=== PATIENT | female | born 2000 | race Caucasian/White ===

== ENCOUNTER → 2019-10-31 16:17 | Outpatient (CLI) | payer OTHER, MEDICAID, SELFPAY ==
--- NOTE | 2019-10-31 16:21 | DI.US.S_ITS ---
PROCEDURE: US OB <= 14 WEEKS FETUS INDICATIONS: F/U TO EARLY US [facility] AT 6w1d, VIABILITY AND DATING OUTSIDE/PRIOR DATING DATA: Last menstrual period (LMP): 08/17/19. LMP-based estimated date of delivery (HARJEET): 05/23/20. First dating scan (date and location): 10/13/19. Estimated date of delivery (HARJEET) from first dating scan: 06/06/20. TECHNIQUE: Real-time scanning was performed of the fetus and maternal pelvic organs, with image documentation. COMPARISON: None. FINDINGS: Embryo: A single live intrauterine is seen. The measured heart rate is 175 beats per minute. The crown-rump length measures 2.5 cm, corresponding to an estimated gestational age of 9 weeks 2 days. It is too early for detailed anatomic assessment. By visual inspection, the amount of amniotic fluid is within normal limits. No significant findings of subchorionic/perigestational hemorrhage are seen. Measurement variability in dating: +/- 4 weeks by LMP, +/- 7 days by mean sac diameter (use before 6 weeks gestation if crown-rump length not able to be measured), +/- 5 days by crown-rump length (up to 8 weeks 6 days gestation), +/- 7 days by crown-rump length (up to 13 weeks 6 days gestation). Maternal organs: Ovaries are unremarkable. Limited images through the kidneys demonstrate no hydronephrosis. IMPRESSION: A single live intrauterine is seen. There is an approximately 2 week discrepancy between the estimated gestational age based on these images and estimated gestational age based on the given date of the last menstrual period. Please correlate with precise clinical data. Dictated by: Dov Trivedi M.D. on 10/31/2019 at 16:08 Approved by: Dov Trivedi M.D. on 10/31/2019 at 16:10
[2019-10-31 17:35] LABS: Add Manual Diff / Slide Review NO; Basophils Absolute Auto 100 /uL (0-100); Basophils Percent Auto 0.4 % (0-2); Eosinophils Absolute Auto 100 /uL (0-450); Eosinophils Percent Auto 0.8 % (2-4); Hematocrit 41.9 % (36-46); Hemoglobin 14.2 g/dL (12.0-16.0); Lymphocytes Absolute Auto 3000 /uL (1100-4500); Lymphocytes Percent Auto 23.8 % (25-40); Mean Corpuscular HGB Conc 33.9 % (30-36); Mean Corpuscular Hemoglobin 29.9 PG (26-34); Mean Corpuscular Volume 88.2 fL (80-100); Monocytes Absolute Auto 800 /uL (0-900); Monocytes Percent Auto 6.5 % (3-14); Neutrophils Absolute Auto 8600 /uL (1500-7000); Neutrophils Percent Auto 68.5 % (50-75); Platelet Count 324 X10^3/uL (150-400); Red Blood Cell Count 4.75 X10^6/uL (4.0-5.2); Red Cell Distribution Width 14.1 % (11.6-14.8); White Blood Cell Count 12.6 X10^3/uL (4.5-11.0)
[2019-10-31 17:39] LABS: Appearance Urine UA CLEAR; Bilirubin Urine UA NEGATIVE (NEGATIVE); Color Urine UA YELLOW; Glucose Urine UA NEGATIVE (Negative); Ketones Urine UA TRACE (NEGATIVE); Leukocyte Esterase Urine UA 2+ (NEGATIVE); Nitrite Urine UA NEGATIVE (Negative); Occult Blood Urine UA TRACE-LYSED (Negative); Protein Urine UA NEGATIVE (Negative); Specific Gravity Urine UA 1.015 (1.000-1.035); Urobilinogen Urine UA 0.2 E.U./dL (0.2)
[2019-10-31 17:53] LABS: pH Urine UA 6.5 (4.5-8.0)
[2019-10-31 17:54] LABS: Bacteria Urine Moderate (10-30); RBC Urine 0-1/HPF (0-5/HPF); Squamous Epithelial Cell Urine 1-5 /HPF (0-5/HPF); WBC Urine 5-10/HPF (0-5/HPF)
[2019-11-01 16:07] LABS: RPR Screen Non Reactive (Non Reactive); Varicella IgG Antibody <135 index (Immune >165)
[2019-11-03 21:45] LABS: Hepatitis B Surface Antigen NEGATIVE s/c (NEGATIVE); Rubella Antibody IgG 84.9 IU/mL (>15)
[2019-11-03 21:50] LABS: HIV 1 & 2 Ab/Ag 4th Gen Combo NEGATIVE (NEGATIVE); Hep C Virus Ab w/Reflex Quant NEGATIVE s/c (NEGATIVE)
== END ==
PROVIDERS: Referring Provider Family Medicine; Visit Provider Family Medicine
DX: Z34.81 Encounter for supervision of other normal pregnancy, first trimester (principal); Z3A.09 9 weeks gestation of pregnancy
CPT/HCPCS: 36415; 76801; 80055; 81003; 81015; 86787; 86803; 86850; 86900; 86901; 87086; 87389

== ENCOUNTER → 2019-11-04 13:48 | Outpatient (CLI) | payer OTHER, MEDICAID, SELFPAY ==
[2019-11-04 16:39] LABS: Urine N gonorrhoeae NOT DETECTED
[2019-11-04 17:04] LABS: Urine Chlamydia NOT DETECTED
== END ==
PROVIDERS: Visit Provider Family Medicine
DX: Z11.3 Encounter for screening for infections with a predominantly sexual mode of transmission (principal); Z11.8 Encounter for screening for other infectious and parasitic diseases; Z34.90 Encounter for supervision of normal pregnancy, unspecified, unspecified trimester
CPT/HCPCS: 87491; 87591

== ENCOUNTER → 2020-01-05 11:18 | Outpatient (CLI) | payer OTHER, MEDICAID, SELFPAY ==
[2020-01-07 20:36] LABS: AFP, Serum 37.2 ng/mL (.); Calc Gestational Age EDD (.); Estriol, Free 1.79 ng/mL (.); Inhibin A, Dimeric 299.38 pg/mL (.); Inhibin A, MoM 2.43 (.); Maternal Ethnicity Caucasian (.); Maternal Weight 261 lbs (.); Number of Fetuses No (.); OSBR Risk 1 IN 6499 (.); Results Report (.); Test Results *Screen Negative* (.); hCG, MoM 1.62 (.); hCG, Serum 33077 mIU/mL (.)
== END ==
PROVIDERS: PCP Family Medicine; Referring Provider Family Medicine; Visit Provider Family Medicine
DX: Z34.90 Encounter for supervision of normal pregnancy, unspecified, unspecified trimester (principal); Z3A.18 18 weeks gestation of pregnancy
CPT/HCPCS: 36415; 82105; 82677; 84702; 86336

== ENCOUNTER → 2020-01-19 10:46 | Outpatient (CLI) | payer OTHER, MEDICAID, SELFPAY ==
--- NOTE | 2020-01-19 10:48 | DI.US.S_ITS ---
PROCEDURE: US OB >= 14 WEEKS FETUS INDICATIONS: ANATOMY SCREENING OUTSIDE/PRIOR DATING DATA: Last menstrual period (LMP): 08/17/19. LMP-based estimated date of delivery (HARJEET): 05/23/20 . First dating scan (date and location): 10/13/19 . Estimated date of delivery (HARJEET) from first dating scan: 06/06/20 . TECHNIQUE: Real-time scanning was performed of the fetus, with image documentation and biometric measurements. Endovaginal scanning: Not needed. COMPARISON: None. FINDINGS: General: A single living intrauterine gestation is present. Presentation: Vertex. Placenta: Placental position is posterior , without previa. 10.9 Amniotic fluid index: Normal cm, normal range is 5-24 cm. heart rate: 144 beats per minute. Maternal cervical canal: 3.5 cm long. biometrics: Biparietal diameter: 4.9 cm, 20 weeks 6 days Head circumference: 18.5 cm, 20 weeks 6 days Abdominal circumference: 15.7 cm, 20 weeks 6 days Femur length: 3.3 cm, 20 weeks 1 day Estimated gestational age from initial scan: 20 weeks 1 day Composite gestational age from present scan: 20 weeks 5 days Estimated weight and percentile: 363 g, 70th percentile Measurement variability for biometric dating: +/- 7 days from 14 weeks to 15 weeks 6 days gestation, +/- 10 days from 16 weeks to 21 weeks 6 days gestation, +/- 2 weeks from 22 weeks to 27 weeks 6 days gestation, +/- 3 weeks for 28 weeks gestation or later. weight reference: 4500 g or EFW >90/95% is considered macrosomia or large for gestational age. EFW <10% is small for gestational age. EFW 5% or less is considered intra-uterine growth restriction. Anatomic survey: Neuro: Ventricles are non-dilated at less than 10 mm. Cisterna magna is normal at 3-11 mm. Cerebellum is normal in size and morphology. Neck region is relatively poorly visualized. Nuchal skin fold: Normal at less than 6 mm between 14-21 weeks gestational age. Face: Nose and lips, facial profile are not well seen. Spine: No evidence for spina bifida. Heart: 4-chambered heart is present, with relatively poorly visualized ventricular outflow tracts. Diaphragm: Diaphragm is intact. Stomach: Left-sided stomach is present. Kidneys: No hydronephrosis. Normal is less than 5 mm in 2nd trimester, less than 7 mm in 3rd trimester. Cord: 3-vessel cord has orthotopic insertion. Bladder: Normal in size. Extremities: All 4 extremities identified. IMPRESSION: Appropriate interval growth, no anomaly is seen however quality of visualization of the facial area, neck region and ventricular outflow tracts is limited and for this reason follow-up completion of anatomic survey is recommended in 1-2 weeks. Dictated by: Patrick Zhang M.D. on 01/19/2020 at 13:47 Approved by: Patrick Zhang M.D. on 01/19/2020 at 13:51
== END ==
PROVIDERS: PCP Family Medicine; Referring Provider Family Medicine; Visit Provider Family Medicine
DX: Z36.89 Encounter for other specified antenatal screening (principal); Z3A.20 20 weeks gestation of pregnancy
CPT/HCPCS: 76811

== ENCOUNTER → 2020-03-02 10:50 | Outpatient (CLI) | payer OTHER, MEDICAID, SELFPAY ==
--- NOTE | 2020-03-02 12:36 | DI.US.S_ITS ---
PROCEDURE: US OB FOLLOW UP INDICATIONS: FOLLOW UP. COMPLETION OF ANATOMIC SURVEY. OUTSIDE/PRIOR DATING DATA: Last menstrual period (LMP): 08/17/2019. LMP-based estimated date of delivery (HARJEET): 05/23/2020 . First dating scan (date and location): 10/13/2019 . Estimated date of delivery (HARJEET) from first dating scan: 06/06/2020 . TECHNIQUE: Real-time scanning was performed of the fetus, with image documentation and biometric measurements. Endovaginal scanning: No COMPARISON: [facility], OB >= 14 WEEKS FETUS, 01/19/2020, 11:03. FINDINGS: General: A single living intrauterine gestation is present. Presentation: Vertex Placenta: Placental position is posterior , without previa. Amniotic fluid index: 13.7 cm, normal range is 5-24 cm. heart rate: 153 beats per minute. Maternal cervical canal: Not well seen. Composite gestational age from present scan: 26 weeks 2 days face again not well seen. IMPRESSION: Single living IUP redemonstrated and today's exam again failing to visualize the face secondary to position. Dictated by: Jesús Justin [facility] Interpreted: Ashley Vargas MD on 03/02/2020 at 16:57 Approved by: Ashley Vargas M.D. on 03/02/2020 at 18:09
[2020-03-02 13:32] LABS: Hematocrit 36.5 % (36-46); Hemoglobin 12.3 g/dL (12.0-16.0)
[2020-03-02 15:43] LABS: GTT (PREG) 1 Hour PP 50gm Dose 101 mg/dL (76-139)
== END ==
PROVIDERS: PCP Family Medicine; Referring Provider Family Medicine; Visit Provider Family Medicine
DX: Z36.2 Encounter for other antenatal screening follow-up (principal); Z3A.26 26 weeks gestation of pregnancy
CPT/HCPCS: 36415; 76816; 82950; 85014; 85018

== ENCOUNTER → 2020-05-11 11:05 | Outpatient (CLI) | payer OTHER, MEDICAID, SELFPAY ==
[2020-05-12 11:57] LABS: Strep Grp B PCR POS for Grp B Strep
== END ==
PROVIDERS: PCP Family Medicine; Visit Provider Family Medicine
DX: Z34.90 Encounter for supervision of normal pregnancy, unspecified, unspecified trimester (principal); Z3A.36 36 weeks gestation of pregnancy
CPT/HCPCS: 87653

== ENCOUNTER 2020-06-02 22:57 | Observation (INO) | payer OTHER, MEDICAID, SELFPAY | END 2020-06-03 00:11 | disposition home or self-care (01) | LOC: LABOR 22:58 | PROVIDERS: Admitting Provider Obstetrics & Gynecology; PCP Family Medicine; Referring Provider Obstetrics & Gynecology; Visit Provider Obstetrics & Gynecology | CPT/HCPCS: 59025; 84112; G0378; G0379 ==

== ENCOUNTER 2020-06-03 01:43 | Inpatient (IN) | payer OTHER, MEDICAID, SELFPAY ==
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
[2020-06-03 03:04] LABS: COVID19 -Nasal RAPID Negative (Negative)
[2020-06-03] MEDS: OXYTOCIN 10 UNIT/ML VIAL 20 UNIT (03:10)
[2020-06-03] MEDS: miSOPROStoL 200 MCG TABLET 800 MCG PR (03:12)
[2020-06-03] MEDS: LIDOCAINE 1% 20 ML (03:15)
[2020-06-03 03:33] LABS: Hematocrit 34.8 % (36-46); Hemoglobin 11.1 g/dL (12.0-16.0); Mean Corpuscular HGB Conc 31.9 % (30-36); Mean Corpuscular Hemoglobin 26.6 PG (26-34); Mean Corpuscular Volume 83.4 fL (80-100); Platelet Count 403 X10^3/uL (150-400); Red Blood Cell Count 4.17 X10^6/uL (4.0-5.2); Red Cell Distribution Width 15.2 % (11.6-14.8); White Blood Cell Count 25.5 X10^3/uL (4.5-11.0)
[2020-06-03 03:34] LABS: Add Manual Diff / Slide Review YES
[2020-06-03] MEDS: OXYTOCIN PREMIX 30 UNIT/500 ML PLAST..BAG 999 UNIT IV (03:42)
[2020-06-03] MEDS: fentaNYL 100 MCG/2 ML INJ 50 MCG IV (03:59)
--- NOTE | 2020-06-03 04:08 | PM.OBPRVD ---
Labor & Delivery Delivery date: 06/03/20 Intrapartal events: Precipitous Labor < 3 hours Delivery augmentation: rupture of membranes (at delivery with meconium) Delivery monitor: external FHT Route of delivery: L&D Laceration Description: Periurethral - 1st Degree (Right), Vaginal - 2nd Degree and Labial (Right second degree that includes vaginal laceration) Delivery repair: vicryl and chromic Estimated blood loss (mL): 2,000 Anesthesia type: None Complications: hemorrhage requiring pitocin and misoprostol Narrative: Patient is a 19-year-old at 39 weeks who gave on 06/03/20 at 3:03 AM. HARJEET: 06/06/20 Hospital problems: 39 weeks of GBS positive STAGE I: Labor Patient presented in active labor and rapidly progressed to complete 2:53 a.m.. Artificial rupture membranes occurred at 2:56 a.m. meconium. Patient desired an epidural but there was not time. Stage I approximately 2.5 hours. heart tones were category 1 throughout stage I. STAGE II: Delivery Spontaneous vaginal delivery occurred on 06/03/20 at 3:03 a.m.. Infant was vertex and MICHELLE. She was immediately placed on mother's abdomen. Apgars were 7 and 9. had a vigorous cry but copious secretions and was taken to the warmer for suctioning. No further resuscitation required beyond suctioning. Stage II duration was 10 minutes. STAGE III: Placenta/Cord Placenta delivered at 3:09 a.m. after active management and appeared intact with a three-vessel cord. Patient had significant bleeding after delivery of placenta. 40 units IM Pitocin given in the left thigh initially. Patient was then given 800 mcg of misoprostol rectally. Patient did not have an IV (multiple unsuccessful attempts on admission). A code was called because there was difficulty contacting RT or the power house control room operator via phone. Help arrived and RT evaluated the infant as above. An RN from the ER was able to start an IV. Bleeding improved after misoprostol. Patient was then started on LR and pitocin IV. BP was stable throughout resuscitation. Last BP 134/74 with pulse of 93. Patient sustained a right first degree periurethal laceration which was repaired with 3-O vicryl for hemostasis. A midline second degree vaginal laceration extended into the right labia and was repaired with 3-O vicryl in the usual fashion. Hemostasis achieved. Fundus firm below umbilicus. Complications: hemorrhage. EBL: 2000 mL. Needle and sponge counts were correct. The vagina was inspected and no items were left in situ. Patient was doing well with Alexis, her and boyfriend at bedside. Baby 1: gender: Female Presentation: vertex Placenta delivery description: Spontaneous cord vessel description: 3 Vessels score (1 min): 7 score (5 min): 9
[2020-06-03 04:22] LABS: Anisocytosis 1+; Neutrophils Absolute Manual 21165 /uL (3000-5900); Total Cells Counted 100
[2020-06-03 05:42] VITALS: BP 119/61
[2020-06-03 05:45] LABS: Hemoglobin 10.4 g/dL (12.0-16.0); Mean Corpuscular HGB Conc 32.5 % (30-36); Mean Corpuscular Hemoglobin 27.2 PG (26-34); Mean Corpuscular Volume 83.9 fL (80-100); Platelet Count 342 X10^3/uL (150-400); Red Blood Cell Count 3.81 X10^6/uL (4.0-5.2); Red Cell Distribution Width 15.2 % (11.6-14.8)
[2020-06-03 05:46] LABS: Add Manual Diff / Slide Review YES; White Blood Cell Count 39.4 X10^3/uL (4.5-11.0)
[2020-06-03 06:36] LABS: Neutrophils Absolute Manual 35066 /uL (3000-5900); Total Cells Counted 100
[2020-06-03 06:37] LABS: Anisocytosis 1+
--- NOTE | 2020-06-03 08:08 | PM.OBPN.1 ---
Subjective - OB Subjective Patient comments: no complaints [place] baby status: doing well and nursing well Date Patient Seen: 06/03/20 Time Patient Seen: 07:50 Interval history: Patient had a syncopal episode in the shower 2 hours after delivery. She very much wanted to get up and shower so was in the shower with nursing support when she passed out for about 10 seconds. She was assisted to the shower chair then had 2 more 10 second episodes. She was moved back into bed. Blood pressure and heart rate were both stable. She had a small gush of blood prior to getting up in the shower but no ongoing bleeding noted in the shower or when she was back in bed. She then fell asleep. Stat CBC did not show a significant drop in H&H however had had only been 2 hours since the first. This morning she denies any complaints. No dizziness or lightheadedness no chest pains or shortness of breath. Bleeding light to moderate. Denies pain other than in her back. She has started with a good latch. Exam Vital Signs (past 8 hours): - 06/03/20 05:42 Blood Pressure 119/61 Narrative Exam Narrative: General: Awake and alert, no acute distress. [place] cheeks. HEENT: NCAT, EOMI, moist oral mucosa CV: Regular rate and rhythm, no murmurs, rubs or gallops Lungs: CTAB, no wheezes, rales, or rhonchi Abdomen: Soft, nontender; bowel tones active; uterus firm 1 cm below umbilicus Extremities: Warm, no edema Objective Labs Result Diagrams: 06/03/20 05:35 Labs: Laboratory Results - last 24 hr 06/03/20 06/03/20 06/03/20 02:45 03:25 03:25 WBC 25.5 H RBC 4.17 Hgb 11.1 L Hct 34.8 L MCV 83.4 MCH 26.6 MCHC 31.9 RDW 15.2 H Plt Count 403 H Neut % (Auto) Not Reportable Lymph % (Auto) Not Reportable [place] % (Auto) Not Reportable Eos % (Auto) Not Reportable Baso % (Auto) Not Reportable Lymph # (Auto) Not Reportable [place] # (Auto) Not Reportable Baso # (Auto) Not Reportable Total Counted 100 Seg Neutrophils % 82.0 H Band Neutrophils % 1.0 L Lymphocytes % (Manual) 13.0 L Monocytes % (Manual) 4.0 Myelocytes % Neutrophils # (Manual) 59942 H RBC Morphology See below Anisocytosis 1+ H COVID-19 PCR Negative Blood Type O Positive Antibody Screen Negative 06/03/20 05:35 WBC 39.4 H* D RBC 3.81 L Hgb 10.4 L Hct 32.0 L MCV 83.9 MCH 27.2 MCHC 32.5 RDW 15.2 H Plt Count 342 Neut % (Auto) Not Reportable Lymph % (Auto) Not Reportable [place] % (Auto) Not Reportable Eos % (Auto) Not Reportable Baso % (Auto) Not Reportable Lymph # (Auto) Not Reportable [place] # (Auto) Not Reportable Baso # (Auto) Not Reportable Total Counted 100 Seg Neutrophils % 82.0 H Band Neutrophils % 7.0 Lymphocytes % (Manual) 8.0 L Monocytes % (Manual) 2.0 Myelocytes % 1.0 H Neutrophils # (Manual) 13624 H RBC Morphology See below Anisocytosis 1+ H COVID-19 PCR Blood Type Antibody Screen Assessment & Plan Assessment and Plan (1) Spontaneous vaginal delivery: Status: Acute (2) 39 weeks gestation of : Status: Acute (3) hemorrhage: Status: Acute Plan day: 0 plan OB: routine care Comments: 19-year-old G1 now P1 5 hours after spontaneous vaginal delivery complicated by hemorrhage requiring misoprostol and Pitocin. Estimated blood loss approximately 2000 mL. Patient appears compensated for the time being with normal heart rate and blood pressure. Will trend H&H today though she does not appear to have severe ongoing bleeding. Reminded her to be careful and slow when getting up and to let us know if she develops any lightheadedness, dizziness or shortness of breath. Time Spent With Patient Time: Total time spent is greater than 50% in coordination of care (as documented) at patient's floor/unit and/or counseling patient: Time with patient: 15-24 minutes
[2020-06-03] MEDS: PRENATAL VIT,CALC/IRON/FOLIC 1 TABLET 1 TAB PO (09:06)
[2020-06-03] MEDS: IBUPROFEN 600 MG TABLET PO ×2 (09:06→15:30)
[2020-06-03] MEDS: SERTRALINE 50 MG TABLET 25 MG PO (09:07)
[2020-06-03] MEDS: ACETAMINOPHEN 325 MG TABLET 650 MG PO ×2 (09:08→15:29)
[2020-06-03] MEDS: LANOLIN OINT 7 GM 1 APPLIC TOP (09:09)
[2020-06-03] MEDS: DERMOPLAST SPRAY 20% 60 ML 1 SPRAY TOP (09:09)
[2020-06-03] MEDS: DOCUSATE 100 MG CAPSULE PO (09:09)
[2020-06-03 11:27] LABS: Hematocrit 26.4 % (36-46); Hemoglobin 8.6 g/dL (12.0-16.0); Mean Corpuscular HGB Conc 32.6 % (30-36); Mean Corpuscular Hemoglobin 26.8 PG (26-34); Mean Corpuscular Volume 82.2 fL (80-100); Platelet Count 249 X10^3/uL (150-400); Red Blood Cell Count 3.21 X10^6/uL (4.0-5.2); Red Cell Distribution Width 15.4 % (11.6-14.8); White Blood Cell Count 26.4 X10^3/uL (4.5-11.0)
[2020-06-03 11:29] LABS: Add Manual Diff / Slide Review YES
[2020-06-03 12:12] LABS: Anisocytosis 1+; Neutrophils Absolute Manual 22176 /uL (3000-5900); Total Cells Counted 100
[2020-06-04] MEDS: IBUPROFEN 600 MG TABLET PO ×2 (01:03→08:54)
[2020-06-04 06:45] LABS: Add Manual Diff / Slide Review NO; Basophils Absolute Auto 0 /uL (0-100); Basophils Percent Auto 0.3 % (0-2); Eosinophils Absolute Auto 100 /uL (0-450); Eosinophils Percent Auto 0.7 % (2-4); Lymphocytes Absolute Auto 2900 /uL (1100-4500); Lymphocytes Percent Auto 21.4 % (25-40); Mean Corpuscular HGB Conc 33.2 % (30-36); Mean Corpuscular Hemoglobin 27.2 PG (26-34); Monocytes Absolute Auto 700 /uL (0-900); Monocytes Percent Auto 5.2 % (3-14); Neutrophils Absolute Auto 9800 /uL (1500-7000); Neutrophils Percent Auto 72.4 % (50-75); Platelet Count 191 X10^3/uL (150-400); Red Blood Cell Count 2.53 X10^6/uL (4.0-5.2); White Blood Cell Count 13.6 X10^3/uL (4.5-11.0)
[2020-06-04 07:14] LABS: Hematocrit 20.8 % (36-46); Hemoglobin 6.9 g/dL (12.0-16.0)
--- NOTE | 2020-06-04 08:09 | PM.OBDS.1 ---
Discharge Providers Provider Date of admission: 06/03/20 01:43 Discharge Date: 06/04/20 Primary care physician: Es Luevano DO Consults: 06/04/20 04:35 Consult to Cigarette And Filter Chief Inspector Routine Comment: Discharge provider: Es Luevano DO Summary Hospital Course Date Patient Seen: 06/04/20 Time Patient Seen: 07:45 Procedures: Spontaneous vaginal delivery Hospital Course: Patient is a 19-year-old G1 now P1 after spontaneous vaginal delivery on 06/03/20 at 39 weeks and 4 days gestation. Delivery was precipitous and unmedicated. She was GBS positive but due to difficulty with IV access and precipitous delivery, did not receive any prophylactic antibiotics. She went on to deliver a vigorous female infant. After delivery patient had a hemorrhage due to uterine atony which was treated with Pitocin and misoprostol. Estimated blood loss was 2000 mL. Second degree vaginal and labial lacerations were repaired with good hemostasis. course was uncomplicated. Patient denied any symptoms of symptomatic anemia such as lightheadedness, dizziness, shortness of breath or palpitations. Vitals were normal throughout her course without tachycardia. Discussed the role of a blood transfusion in cases of severe anemia or symptomatic anemia. Given lack of symptoms and normal vitals, she declined a blood transfusion. She was ambulating, voiding, stooling without difficulty. Vaginal bleeding was light on the day of discharge. Pain controlled with ibuprofen and Tylenol only. Breast-feeding was going well, no issues in the . Patient advised to call for fevers, severe pain or bleeding through more than a pad an hour. She was given prescriptions for ibupfoen, docusate and iron. Follow up in clinic in six weeks or sooner if needed. Peripartum Data Infant Delivery Method: Natural Vaginal Laceration Description: Vaginal - 2nd Degree and Labial [place] 1: Gender: Female Discharge Diagnosis (1) Spontaneous vaginal delivery: Status: Acute (2) 39 weeks gestation of : Status: Acute (3) hemorrhage: Status: Acute (4) Acute blood loss anemia: Status: Acute Status at Discharge Cognitive/behavioral status at discharge: at baseline, oriented Functional status at discharge: independent ambulation Overall status at discharge: patient is progressing back to baseline Time Spent with Patient Time attestation: Total time spent providing and/or coordinating discharge services: Time spent: Less than 30 minutes Objective Labs Result Diagrams: 06/04/20 06:00 Labs: Laboratory Results - last 24 hr 06/03/20 06/04/20 11:08 06:00 WBC 26.4 H 13.6 H RBC 3.21 L 2.53 L Hgb 8.6 L 6.9 L* Hct 26.4 L 20.8 L* MCV 82.2 82.0 MCH 26.8 27.2 MCHC 32.6 33.2 RDW 15.4 H 15.0 H Plt Count 249 191 Neut % (Auto) Not Reportable 72.4 Lymph % (Auto) Not Reportable 21.4 L [place] % (Auto) Not Reportable 5.2 Eos % (Auto) Not Reportable 0.7 L Baso % (Auto) Not Reportable 0.3 Neut # (Auto) 9800 H Lymph # (Auto) Not Reportable 2900 [place] # (Auto) Not Reportable 700 Eos # (Auto) 100 Baso # (Auto) Not Reportable 0 Total Counted 100 Seg Neutrophils % 78.0 H Band Neutrophils % 6.0 Lymphocytes % (Manual) 11.0 L Monocytes % (Manual) 5.0 Neutrophils # (Manual) 03310 H RBC Morphology See below Anisocytosis 1+ H Exam Vital Signs (past 8 hours): Temperature 98.0? blood pressure 134/79 heart rate 92 respirations 17 Narrative Exam Narrative: General: Awake and alert, no acute distress. HEENT: NCAT, EOMI, moist oral mucosa CV: Regular rate and rhythm, no murmurs, rubs or gallops Lungs: CTAB, no wheezes, rales, or rhonchi Abdomen: Soft, nontender; bowel tones active; uterus firm 1 cm below umbilicus Extremities: Warm, no edema Discharge Plan Discharge Plan Patient Disposition: Home Discharge orders & Medications Prescriptions: New acetaminophen 325 mg Tablet 650 mg PO Q6HR PRN (Reason: Pain, Mild (1-3)) Qty: 30 RF: 0 Dermoplast (with menthol) 20-0.5 % Aerosol 1 spray topical Q1HR PRN (Reason: perineal pain) Qty: 56 RF: 0 ferrous sulfate 325 mg (65 mg iron) Tablet 325 mg PO BIDWM Qty: 30 RF: 0 docusate sodium [DOK] 100 mg Capsule 100 mg PO DAILY Qty: 30 RF: 0 ibuprofen 600 mg Tablet 600 mg PO Q6HR PRN (Reason: Pain, Mild (1-3)) Qty: 30 RF: 0 Xqt-C-Garbav Cream 1 applic topical PRN PRN (Reason: Tenderness) Qty: 28 RF: 0 Continued sertraline 25 mg tablet 25 mg PO DAILY Qty: 30 RF: 2 prenat.vits,montana,zue-hfgw-hwrum Tablet 1 tab PO DAILY RF: 0 Discontinued ondansetron 4 mg tablet,disintegrating 4 mg PO Q8H PRN (Reason: nausea and vomiting) Qty: 30 RF: 0 Follow up/Referrals: Es Luevano, [Primary Care Provider] - 6 Weeks (Please make appointment when in the office with infant for 6 week appointment.) Visit Report/Discharge Packet Stand Alone Forms: Discharge: Care Visit Report Forms: Patient Portal/API, Stroke Signs & Symptoms Discharge Data Primary Care Provider: Es Luevano Discharges patient from system. Discharge Date/Time: 06/04/20 11:30
[2020-06-04] MEDS: PRENATAL VIT,CALC/IRON/FOLIC 1 TABLET 1 TAB PO (08:51)
[2020-06-04 11:57] VITALS: BP 119/61
== END 2020-06-04 11:30 | disposition home or self-care (01) | DRG 560 ==
PROVIDERS: Admitting Provider Family Medicine; PCP Family Medicine; Referring Provider Obstetrics & Gynecology; Visit Provider Family Medicine
DX: O99.824 Streptococcus B carrier state complicating childbirth (principal); D62 Acute posthemorrhagic anemia; R55 Syncope and collapse; O72.0 Third-stage hemorrhage; O62.3 Precipitate labor; O77.0 Labor and delivery complicated by meconium in amniotic fluid; O70.1 Second degree perineal laceration during delivery; O71.82 Other specified trauma to perineum and vulva; O99.324 Drug use complicating childbirth; F12.90 Cannabis use, unspecified, uncomplicated; Z37.0 Single live birth; Z3A.39 39 weeks gestation of pregnancy; Z11.59 Encounter for screening for other viral diseases
CPT/HCPCS: 36415; 59025; 59050; 59409; 84112; 85007; 85025; 86850; 86900; 86901; 87635; G0378; G0379; J2590; J3010; S0191

== ENCOUNTER → 2020-09-06 16:53 | Outpatient (CLI) | payer OTHER, MEDICAID, SELFPAY ==
[2020-09-06 18:28] LABS: Add Manual Diff / Slide Review NO; Basophils Absolute Auto 0 /uL (0-100); Basophils Percent Auto 0.4 % (0-2); Eosinophils Absolute Auto 100 /uL (0-450); Eosinophils Percent Auto 1.7 % (2-4); Hematocrit 35.2 % (36-46); Hemoglobin 11.1 g/dL (12.0-16.0); Lymphocytes Absolute Auto 2600 /uL (1100-4500); Lymphocytes Percent Auto 39.3 % (25-40); Mean Corpuscular HGB Conc 31.4 % (30-36); Mean Corpuscular Hemoglobin 23.7 PG (26-34); Mean Corpuscular Volume 75.5 fL (80-100); Monocytes Absolute Auto 500 /uL (0-900); Monocytes Percent Auto 7.1 % (3-14); Neutrophils Absolute Auto 3400 /uL (1500-7000); Neutrophils Percent Auto 51.5 % (50-75); Platelet Count 228 X10^3/uL (150-400); Red Blood Cell Count 4.66 X10^6/uL (4.0-5.2); Red Cell Distribution Width 17.6 % (11.6-14.8); White Blood Cell Count 6.7 X10^3/uL (4.5-11.0)
== END ==
PROVIDERS: PCP Family Medicine; Referring Provider Family Medicine; Visit Provider Family Medicine
DX: D62 Acute posthemorrhagic anemia (principal)
CPT/HCPCS: 36415; 85025